=== PATIENT | female | born 1935 | race Caucasian/White ===

== ENCOUNTER 2018-08-08 09:04 | Inpatient (IN) | payer MEDICARE ==
[~2018-08-08] VITALS: Ht 154.9 cm; Wt 52.2 kg
[2018-08-08] VITALS (16 sets, daily range): BP systolic 89–136; BP diastolic 44–61
--- NOTE | 2018-08-08 09:04 | NUR ---
PT ARRIVED VIA EMS ET STATES SHE WANTS TO GO TO THE BATHROOM BEFORE ANYTHING. ON WAY BACK FROM THE BATHROOM SHE STARTED HAVING CHEST PAIN AND SOA.
--- NOTE | 2018-08-08 09:10 | NUR ---
PT STATES CHEST PAIN AND SOA IS BETTER.
[2018-08-08 09:41] LABS: BASOPHILS % (AUTO) 0 % (0-10); EOSINOPHILS # (AUTO) 0.2 10^3/uL (0.0-0.3); EOSINOPHILS % (AUTO) 2 % (0-10); HEMATOCRIT 36 % (35-52); HEMOGLOBIN 11.9 G/DL (11.5-16.0); LYMPHOCYTES # (AUTO) 1.2 X 10^3 (1.0-4.0); LYMPHOCYTES % (AUTO) 14 % (12-44); MEAN CORPUSCULAR HEMOGLOBIN 30 PG (25-34); MEAN CORPUSCULAR HGB CONC 33 G/DL (32-36); MEAN CORPUSCULAR VOLUME 93 FL (80-99); MONOCYTES # (AUTO) 0.7 X 10^3 (0.0-1.0); MONOCYTES % (AUTO) 8 % (0-12); NEUTROPHILS # (AUTO) 6.8 X 10^3 (1.8-7.8); NEUTROPHILS % (AUTO) 76 % (42-75); PLATELET COUNT 133 10^3/uL (130-400); WHITE BLOOD COUNT 8.9 10^3/uL (4.3-11.0)
--- NOTE | 2018-08-08 09:53 | Diagnostic Imaging Report ---
INDICATION: Chest pain. FINDINGS: Upright portable chest shows cardiomegaly with no failure. The lungs are clear. There is no effusion or pneumothorax. A pacemaker is present. IMPRESSION: There is generalized cardiomegaly with no failure. A pacemaker is present. Dictated by: Dictated on workstation # [id number]
[2018-08-08 09:56] LABS: BILIRUBIN,TOTAL 0.5 MG/DL (0.1-1.0); CALCIUM 10.4 MG/DL (8.5-10.1); CREATININE SERUM 1.19 MG/DL (0.60-1.30); MAGNESIUM 2.2 MG/DL (1.8-2.4); TOTAL PROTEIN 7.7 GM/DL (6.4-8.2)
[2018-08-08 09:58] LABS: PROTHROMBIN TIME PATIENT 13.5 SEC (12.2-14.7)
[2018-08-08 10:03] LABS: MYOGLOBIN SERUM 97.4 NG/ML (10.0-92.0)
[2018-08-08 10:16] LABS: FREE T4 (FREE THYROXINE) 1.3 NG/DL (0.70-1.48)
--- NOTE | 2018-08-08 10:19 | NUR ---
WARM BLANKET GIVEN. DENIES NEEDS AT THIS TIME. NOTIFIED WE WERE WAITING ON RESULTS.
[2018-08-08] MEDS ORDERED: DILTIAZEM 25 MG/5 ML INJ (CARDIZEM) VIAL IVP ONE (11:30)
[2018-08-08] MEDS ORDERED: DILTIAZEM INJECTION 125 MG in NS (IVPB) 100 ML IV SCH (11:30)
--- NOTE | 2018-08-08 12:55 | NUR ---
PT SITTING UP IN BED WITH SLIGHT PAIN IN BACK.
--- NOTE | 2018-08-08 13:15 | ED Chest Pain ---
General Chief Complaint: Chest Pain Stated Complaint: CHEST PAIN Nursing Triage Note: ARRIVED VIA EMS FROM [place] WITH CHEST PAIN. STATES IT STARTED AT 0515 AFTER WAKING UP FROM A BAD DREAM. PT TOOK X2 NITRO AND ASA 325MG PO BEOFRE CALLING EMS. EMS REPORTS PT DID HAVE A RUN OF AFIB WITH RVR. Nursing Sepsis Screen: No Definite Risk Source: patient Exam Limitations: no limitations History of Present Illness Date Seen by Provider: Aug 08, 2018 Time Seen by Provider: 08:47 Initial Comments Patient presents to the emergency room with complaint of chest pain that started around 05:15. She took nitroglycerin which helped briefly. Pain returned. She then decided to activate EMS. EMS administered nitroglycerin 2 and aspirin 324 mg. Chest pain again improved. Patient has a history of cardiovascular disease. She had a pacemaker replacement with defibrillator placement in March of last year. She then had a cardiac catheterization in April. She states small vessel disease was noted but her coronary artery disease is not amenable to intervention. She sees Dr. Winter at [facility] for cardiology care. Her primary care providers Dr. Carlson. Allergies and Home Medications Allergies Coded Allergies: prednisone (Verified Allergy, Unknown, RACING HEART, 08/08/18) amoxicillin (Verified Adverse Reaction, Unknown, NAUSEA, 08/08/18) Uncoded Allergies: CONTRST DYE (Adverse Reaction, Unknown, KIDNEYS FAILED, 08/08/18) Home Medications Acetaminophen 500 Mg Tablet, 500 MG PO TID PRN for PAIN-MILD, (Reported) Aspirin 81 Mg Tab.chew, 81 MG PO DAILY, (Reported) Atorvastatin Calcium 40 Mg Tablet, 40 MG PO HS, (Reported) Calcium Carbonate 600 Mg Tablet, 1,200 MG PO DAILY, (Reported) Clopidogrel Bisulfate 75 Mg Tablet, 75 MG PO DAILY, (Reported) TAKES AT 0630 Ferrous Sulfate 325 Mg Tablet, 325 MG PO BID WITH MEALS, (Reported) Furosemide 40 Mg Tablet, 40 MG PO BIDAC, (Reported) TAKES AT 0630 AND 1400 Krill/Barrington-3/Dha/Epa/Lipids Unknown Strength Capsule, Unknown Dose PO HS, ( Reported) Levothyroxine Sodium 125 Mcg Tablet, 125 MCG PO DAILY, (Reported) Losartan Potassium 25 Mg Tablet, 25 MG PO DAILY, (Reported) Metoprolol Succinate 25 Mg Tab.er.24h, 25 MG PO DAILY, (Reported) Midodrine HCl 2.5 Mg Tablet, 3 TAB PO UD, (Reported) 3 PER DAY AT MEAL TIME. SKIP DOSE IF SBP IS OVER 100 Multivitamin with Minerals 1 Each Tablet, 1 EACH PO DAILY, (Reported) TAKES W/ EVENING MEAL Nitroglycerin 0.4 Mg Tab.subl, 0.4 MG SL UD PRN for CHEST PAIN, (Reported) GIVE 1 TABLET SL EVERY 5 MIN. PRN CHEST PAIN - MAX IS 3 TABLETS IN 15 MIN. PERIOD. Omeprazole 20 Mg Capsule.dr, 20 MG PO HS, (Reported) Polyethylene Glycol 3350 17 Gm Powd.pack, 17 GM PO DAILY PRN for CONSTIPATION- 1ST LINE, (Reported) Spironolactone 25 Mg Tablet, 25 MG PO DAILY, (Reported) Timolol Maleate 5 Ml Drops, 1 DROP OU HS, (Reported) Ursodiol 300 Mg Capsule, 300 MG PO BID WITH MEALS, (Reported) Vit C/Vit E/Lutein/Min/Barrington-3 1 Each Capsule, 1 EACH PO DAILY, (Reported) Patient Home Medication List Home Medication List Reviewed: Yes Review of Systems Review of Systems Constitutional: no symptoms reported EENTM: No Symptoms Reported Respiratory: See HPI Cardiovascular: See HPI Gastrointestinal: No Symptoms Reported Genitourinary: No Symptoms Reported Musculoskeletal: no symptoms reported Skin: no symptoms reported Psychiatric/Neurological: No Symptoms Reported Endocrine: No Symptoms Reported Hematologic/Lymphatic: No Symptoms Reported Past Tybrbkt-Juhzig-Izazvm Hx Patient Social History Alcohol Use: Denies Use Recreational Drug Use: No Smoking Status: Never a Smoker Recent Foreign Travel: No Contact w/Someone Who Travel: No Recent Infectious Disease Expo: No Recent Hopitalizations: No Past Medical History Surgeries: Yes Cardiac (Cardiac angiography), Ear Surgery, Hysterectomy, Orthopedic Respiratory: Yes Pneumonia, COPD Cardiac: Yes Atrial Fibrillation, Coronary Artery Disease, Heart Attack, Hypertension Neurological: No : No Genitourinary: No Gastrointestinal: Yes Cirrhosis (Of unknown etiology), Gall Bladder Disease Musculoskeletal: Yes Fractures HEENT: No Cancer: No Psychosocial: No Physical Exam Vital Signs Vital Signs - First Documented 08/08/18 09:04 Temp 98.0 Pulse 134 Resp 16 B/P (MAP) 153/94 (113) Pulse Ox 100 O2 Delivery Room Air Capillary Refill : Less Than 3 Seconds Height, Weight, BMI Height: 5'1.00" Weight: 112lbs. oz. 50.324640fl; BMI Method:Stated General Appearance: No Apparent Distress, WD/WN, Thin HEENT: PERRL/EOMI, Normal ENT Inspection Neck: Normal Inspection Respiratory: Lungs Clear, Normal Breath Sounds, No Accessory Muscle Use, No Respiratory Distress Cardiovascular: No Edema, No Murmur, Normal Peripheral Pulses, Irregularly Irregular, Tachycardia Gastrointestinal: Non Tender, Soft Extremity: Normal Capillary Refill, Normal Inspection, No Pedal Edema Neurologic/Psychiatric: Alert, Oriented x3, No Motor/Sensory Deficits, Normal Mood/Affect, assistant cross country coach II-XII Norm as Tested Skin: Normal Color, Warm/Dry Progress/Results/Core Measures Results/Orders Lab Results Laboratory Tests Test 08/08/18 09:10 Range/Units White Blood Count 8.9 4.3-11.0 10^3/uL Red Blood Count 3.92 L 4.35-5.85 10^6/uL Hemoglobin 11.9 11.5-16.0 G/DL Hematocrit 36 35-52 % Mean Corpuscular Volume 93 80-99 FL Mean Corpuscular Hemoglobin 30 25-34 PG Mean Corpuscular Hemoglobin Concent 33 32-36 G/DL Red Cell Distribution Width 15.0 H 10.0-14.5 % Platelet Count 133 130-400 10^3/uL Mean Platelet Volume 11.0 H 7.4-10.4 FL Neutrophils (%) (Auto) 76 H 42-75 % Lymphocytes (%) (Auto) 14 12-44 % Monocytes (%) (Auto) 8 0-12 % Eosinophils (%) (Auto) 2 0-10 % Basophils (%) (Auto) 0 0-10 % Neutrophils # (Auto) 6.8 1.8-7.8 X 10^3 Lymphocytes # (Auto) 1.2 1.0-4.0 X 10^3 Monocytes # (Auto) 0.7 0.0-1.0 X 10^3 Eosinophils # (Auto) 0.2 0.0-0.3 10^3/uL Basophils # (Auto) 0.0 0.0-0.1 10^3/uL Prothrombin Time 13.5 12.2-14.7 SEC INR Comment 1.0 0.8-1.4 Activated Partial Thromboplast Time 32 24-35 SEC Sodium Level 139 135-145 MMOL/L Potassium Level 4.0 3.6-5.0 MMOL/L Chloride Level 99 98-107 MMOL/L Carbon Dioxide Level 26 21-32 MMOL/L Anion Gap 14 5-14 MMOL/L Blood Urea Nitrogen 24 H 7-18 MG/DL Creatinine 1.19 0.60-1.30 MG/DL Estimat Glomerular Filtration Rate 43 BUN/Creatinine Ratio 20 Glucose Level 126 H 70-105 MG/DL Calcium Level 10.4 H 8.5-10.1 MG/DL Corrected Calcium 10.4 H 8.5-10.1 MG/DL Magnesium Level 2.2 1.8-2.4 MG/DL Total Bilirubin 0.5 0.1-1.0 MG/DL Aspartate Amino Transf (AST/SGOT) 37 H 5-34 U/L Alanine Aminotransferase (ALT/SGPT) 15 0-55 U/L Alkaline Phosphatase 110 40-136 U/L Myoglobin 97.4 H 10.0-92.0 NG/ML Troponin I 0.037 <0.028 NG/ML B-Type Natriuretic Peptide 520.2 H <100.0 PG/ML Total Protein 7.7 6.4-8.2 GM/DL Albumin 4.0 3.2-4.5 GM/DL Thyroid Stimulating Hormone (TSH) 1.71 0.35-4.94 UIU/ML Free Thyroxine 1.30 0.70-1.48 NG/DL My Orders Orders - MEGHAN COSTA MD Cbc With Automated Diff (08/08/18:30) Magnesium (08/08/18 09:30) Chest 1 View, Ap/Pa Only (08/08/18:30) Ekg Tracing (08/08/18:30) Cardiac Profile 1 (08/08/18:30) Comprehensive Metabolic Panel (08/08/18:30) Myoglobin Serum (08/08/18:30) Protime With Inr (08/08/18:) Partial Thromboplastin Time (08/08/18:) O2 (08/08/18:30) Monitor-Rhythm Ecg Trace Only (08/08/18:30) Lipid Panel (08/09/18 06:00) Saline Lock/Iv-Start (08/08/18:) BNP (08/08/18:30) Thyroid Stimulating Hormone (08/08/18 09:30) Free T4 (Free Thyroxine) (08/08/18 09:30) Ns (Ivpb) (Sodium C... W/Diltiazem Injec (08/08/18 11:30) Diltiazem Injection (Cardizem Injection) (08/08/18 11:30) Medications Given in ED Current Medications Medications Dose Ordered Sig/Hattie Route Start Time Stop Time Status Last Admin Dose Admin Diltiazem HCl 10 mg ONCE ONCE IVP 08/08/18 11:30 08/08/18 11:31 DC 08/08/18 11:52 10 MG Vital Signs/I&O 08/08/18 09:04 Temp 98.0 Pulse 134 Resp 16 B/P (MAP) 153/94 (113) Pulse Ox 100 O2 Delivery Room Air Blood Pressure Mean: 113 Progress Progress Note : Progress Note Patient's chest pain had resolved by the time of arrival after nitroglycerin 2 by EMS. However, when she walked to the bathroom, she had shortness of breath and chest pain. This resolved with rest in her bed. She was given aspirin by EMS. She had already taken her Plavix and metoprolol at home. Patient is not on anticoagulation because she has had severe hematomas from Lovenox and warfarin in the past. Hematomas were so severe they required surgical intervention and tissue debridement. I discussed the case with Dr. Jha. He recommended Cardizem drip which was initiated in the emergency room. He also recommended Lovenox but patient wishes to discuss this further with Dr. Jha before initiating due to her history of severe hematomas. Patient also said she had an atrial clip placed which is supposed to reduce her risk of stroke from atrial fibrillation. Cardizem drip was initiated and improve her heart rate. Patient was admitted with the chest pain protocol to the ICU with a Cardizem drip infusing. Initial ECG Impression Date: Aug 08, 2018 Initial ECG Impression Time: 09:07 Initial ECG Rate: 100 Initial ECG Rhythm: A Fib/Flutter Comment Paced rhythm with no discernible ST elevation or depression. Based on rhythm on the monitor around the time of EKG, this is likely in atrial fibrillation. Diagnostic Imaging Diagonstic Imaging: Xray Plain Films/CT/US/NM/MRI: chest Comments NAME: CARLI JESUS MED REC#: [id number] PT STATUS: REG ER : 1935 PHYSICIAN: MEGHAN COSTA MD ADMIT DATE: 08/08/18/ER Signed Date of Exam: 08/08/18 CHEST 1 VIEW, AP/PA ONLY INDICATION: Chest pain. FINDINGS: Upright portable chest shows cardiomegaly with no failure. The lungs are clear. There is no effusion or pneumothorax. A pacemaker is present. IMPRESSION: There is generalized cardiomegaly with no failure. A pacemaker is present. Dictated by: Dictated on workstation # [id number] Dict: 08/08/1844 Trans: 08/08/1858 Interpreted by: SEBASTIAN ORTEGA MD Electronically signed by: SEBASTIAN ORTEGA MD 08/08/1858 Departure Communication (Admissions) Time/Spoke to Admitting Phy: 11:38 Lucina Time/Spoke to Consulting Phy: 11:30 Abhijeet Impression Primary Impression: Chest pain Qualified Codes: R07.9 - Chest pain, unspecified Additional Impressions: Atrial fibrillation with RVR Coronary artery disease Qualified Codes: I25.10 - Atherosclerotic heart disease of tribe coronary artery without angina pectoris Disposition: ADMITTED INPATIENT Condition: Improved Admissions Decision to Admit Reason: Admit from ER (General) Decision to Admit/Date: Aug 08, 2018 Time/Decision to Admit Time: 09:00 Departure-Patient Inst. Referrals: ALBERT CARLSON MD (PCP/Family) Primary Care Physician MEGHAN COSTA MD Aug 08, 2018 13:15
--- NOTE | 2018-08-08 13:30 | NUR ---
CARLI JESUS admitted to room CU8-1, with an admitting diagnosis of CP, AFIB RVR, on 08/08/18 from ER via CART, accompanied by STAFF.CARLI JESUS introduced to surroundings, call light, bed controls, phone, TV, temperature control, lights, meal times, smoking policy, visitor policy, side rail policy, bathrooms and showers. Patient Rights given to patient in the handbook. CARLI JESUS verbalizes understanding that [facility] is not responsible for the loss or damage to any personal effects or valuables that are kept in the patients posession during their hospitalization. The following Patient Care Plans were discussed with the PT: Discharge Planning, ANXIETY,ACTIVITY INTOLERANCE, and KNOWLEDGE DEFICIT. CARLI JESUS verbalizes understanding of Interdisciplinary Patient Education. Patient and family were informed about the Rapid Response Team and its purpose.
[2018-08-08] MEDS ORDERED: DILTIAZEM 125 MG/NS 100 ML IV SCH ×2 (14:15)
[2018-08-08] MEDS ORDERED: morphine INJ 4 MG/ML 1 ML (VIAL/SYRINGE) IVP PRN (14:30)
[2018-08-08] MEDS ORDERED: NITROGLYCERIN 0.4 MG SL TABS BTL 25'S SL PRN ×2 (14:30→16:15)
--- NOTE | 2018-08-08 15:47 | Consultation-Cardiology ---
HPI-Cardiology Cardiology Consultation: Date of Consultation 08/08/18 Time Seen by a Provider: 15:40 Date of Admission Attending Physician Hazel Verdugo MD Admitting Physician Sylvain Dominguez MD Consulting Physician DONNA GORE MD, MA, FACP, FACC, FSCAI, CCDS Physician requesting consult: Dr England HPI: Chief Complaint: CC: Chest discomfort, palpitations 83 yo woman who awoke with a feeling of a rapid heart beat; home bp equipment indicated a heart rate of 120 bpm. When she got up and walked she would experience upper midsternal pressure, mod in intensity, radiating to both shoulders, associated with some shortness of breath. This would last several minutes and would improve with rest. She came to the ER where she had another episode while walking to the bathroom. Subsequently, for her A Fib with RVR, she was placed on iv dilt. Has since not had chest discomfort or palp. Denies syncope. Has chronic exertional shortness of breath. Does not report leg swelling. Notes gen malaise Review of Systems-Cardiology Review of Systems Constitutional: As described under HPI Eyes: No vision change Ears/Nose/Throat: chronic hearing loss; No ear discharge, No nasal drainage, No recent hearing loss Respiratory: As described under HPI Cardiovascular: As described under HPI Gastrointestinal: No constipation, No diarrhea, No nausea, No vomiting Genitourinary: No dysuria, No hematuria, No urine frequency changes Musculoskeletal: No back pain, No joint pain Skin: No rash, No ulcerations Psychiatric/Neurological: No seizure, No focal weakness Hematologic: No bleeding abnormalities CCJ-Nyaknq-Zfyyio Hx Patient Social History Alcohol Use: Denies Use Recreational Drug Use: No Smoking Status: Never a Smoker Recent Foreign Travel: No Recent Infectious Disease Expo: No Physical Abuse Screen: No Sexual Abuse: No Immunizations Up To Date Date of Pneumonia Vaccine: Feb 20, 2018 Date of Influenza Vaccine: Feb 20, 2018 Past Medical History PMH As described under Assessment. Family Medical History Family History: Cardiovascular disease 19 MOTHER Hypercholesterolemia DAUGHTER Myocardial infarction 19 FATHER Allergies and Home Medications Allergies Coded Allergies: prednisone (Verified Allergy, Unknown, RACING HEART, 08/08/18) amoxicillin (Verified Adverse Reaction, Unknown, NAUSEA, 08/08/18) Uncoded Allergies: CONTRST DYE (Adverse Reaction, Unknown, KIDNEYS FAILED, 08/08/18) Home Medications Acetaminophen 500 Mg Tablet, 500 MG PO TID PRN for PAIN-MILD, (Reported) Aspirin 81 Mg Tab.chew, 81 MG PO DAILY, (Reported) Atorvastatin Calcium 40 Mg Tablet, 40 MG PO HS, (Reported) Calcium Carbonate 600 Mg Tablet, 1,200 MG PO DAILY, (Reported) Clopidogrel Bisulfate 75 Mg Tablet, 75 MG PO DAILY, (Reported) TAKES AT 0630 Ferrous Sulfate 325 Mg Tablet, 325 MG PO BID WITH MEALS, (Reported) Furosemide 40 Mg Tablet, 40 MG PO BIDAC, (Reported) TAKES AT 0630 AND 1400 Krill/Breese-3/Dha/Epa/Lipids Unknown Strength Capsule, Unknown Dose PO HS, ( Reported) Levothyroxine Sodium 125 Mcg Tablet, 125 MCG PO DAILY, (Reported) Losartan Potassium 25 Mg Tablet, 25 MG PO DAILY, (Reported) Metoprolol Succinate 25 Mg Tab.er.24h, 25 MG PO DAILY, (Reported) Midodrine HCl 2.5 Mg Tablet, 3 TAB PO UD, (Reported) 3 PER DAY AT MEAL TIME. SKIP DOSE IF SBP IS OVER 100 Multivitamin with Minerals 1 Each Tablet, 1 EACH PO DAILY, (Reported) TAKES W/ EVENING MEAL Nitroglycerin 0.4 Mg Tab.subl, 0.4 MG SL UD PRN for CHEST PAIN, (Reported) GIVE 1 TABLET SL EVERY 5 MIN. PRN CHEST PAIN - MAX IS 3 TABLETS IN 15 MIN. PERIOD. Omeprazole 20 Mg Capsule.dr, 20 MG PO HS, (Reported) Polyethylene Glycol 3350 17 Gm Powd.pack, 17 GM PO DAILY PRN for CONSTIPATION- 1ST LINE, (Reported) Spironolactone 25 Mg Tablet, 25 MG PO DAILY, (Reported) Timolol Maleate 5 Ml Drops, 1 DROP OU HS, (Reported) Ursodiol 300 Mg Capsule, 300 MG PO BID WITH MEALS, (Reported) Vit C/Vit E/Lutein/Min/Breese-3 1 Each Capsule, 1 EACH PO DAILY, (Reported) Patient Home Medication List Home Medication List Reviewed: Yes Physical Exam-Cardiology Physical Exam Vital Signs/I&O 08/08/18 08/08/18 08/08/18 08/08/18 09:04 13:30 13:30 13:33 Temp 98.0 99.1 97.4 Pulse 134 93 83 Resp 16 14 18 B/P (MAP) 153/94 (113) 136/61 (86) 107/68 (81) Pulse Ox 100 99 99 98 O2 Delivery Room Air Room Air Room Air Room Air 08/08/18 08/08/18 14:45 15:40 Temp 98.4 Pulse 81 Capillary Refill : Less Than 3 Seconds Constitutional: AAO x 3, well-developed, other (Thin-appearing) HEENT: PERRL, EOMI, hard of hearing Neck: No carotid bruit; carotid pulses are 2 + bilaterally, with good upstrokes Respiratory: No accessory muscle use; other (fair to good bilat air entry) Cardiovascular: irregularly irregular, S1 and S2, systolic murmur (2/6 RK at card base) Gastrointestinal: No tender; soft; No guarding, No rebound; audible bowel sounds Extremities: No clubbing, No cyanosis, No significant edema Neurologic/Psychiatric: oriented x 3, grossly intact, power is 5/5 both on sides Skin: No rash on exposed areas, No ulcerations on exposed areas Data Review Labs Laboratory Tests 08/08/18 09:10: White Blood Count 8.9, Red Blood Count 3.92L, Hemoglobin 11.9, Hematocrit 36, Mean Corpuscular Volume 93, Mean Corpuscular Hemoglobin 30, Mean Corpuscular Hemoglobin Concent 33, Red Cell Distribution Width 15.0H, Platelet Count 133, Mean Platelet Volume 11.0H, Neutrophils (%) (Auto) 76H, Lymphocytes (%) (Auto) 14, Monocytes (%) (Auto) 8, Eosinophils (%) (Auto) 2, Basophils (%) (Auto) 0, Neutrophils # (Auto) 6.8, Lymphocytes # (Auto) 1.2, Monocytes # (Auto) 0.7, Eosinophils # (Auto) 0.2, Basophils # (Auto) 0.0, Prothrombin Time 13.5, INR Comment 1.0, Activated Partial Thromboplast Time 32, Sodium Level 139, Potassium Level 4.0, Chloride Level 99, Carbon Dioxide Level 26, Anion Gap 14, Blood Urea Nitrogen 24H, Creatinine 1.19, Estimat Glomerular Filtration Rate 43 , BUN/Creatinine Ratio 20, Glucose Level 126H, Calcium Level 10.4H, Corrected Calcium 10.4H, Magnesium Level 2.2, Total Bilirubin 0.5, Aspartate Amino Transf (AST/SGOT) 37H, Alanine Aminotransferase (ALT/SGPT) 15, Alkaline Phosphatase 110 , Myoglobin 97.4H, Troponin I 0.037, B-Type Natriuretic Peptide 520.2H, Total Protein 7.7, Albumin 4.0, Thyroid Stimulating Hormone (TSH) 1.71, Free Thyroxine 1.30 08/08/18 15:07: Troponin I 1.108*H A/P-Cardiology Assessment/Admission Diagnosis 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 In November, at [facility]: 60% LMCA treated with Alp Xience 2.5 x 15 mm stent extending into prox LCX , 50% prox LAD, patent mild LAD stent, long and diffuse 90-95% stenosis of distal LAD after the stent, 50% ostial LCX, chronic mid-vessel occ of the RCA. Last cath on 04/22/18 at [facility]: Cor status unchanged except a newly occluded LAD that was not intervened on (treated conservatively) Chronic systolic CHF due to severe ischemic CM with LVEF reported to be 25% on echo of Feb, 2018 at [facility] [employer] in Mar, [address] Scott at [facility]. Previously had a single chamber pacemaker that was first placed in 2005 and revised in 2012 at [facility] S/p Atriclip at [facility] in 2017. Taken off OAC after that H/o hypothyroidism (etiology undefined) H/o hypertension H/o hyperlipidemia H/o GERD H/o primary biliary cirrhosis Discussion and Recomendations * This appears to be a Type-2 (rather than a classic, thrombo-embolic) MA. In addition, she states that she had her most recent cath at [facility] in Mar, 2018 and was told that she is not a candidate for further cor interventions. Thus, med therapy appears appropriate * The initiating cause of this event is likely to be the rapid vent response that she is experiencing from her A Fib. A review of her [facility] records indicates that beta-blockers have not been effective in rate control. Accordingly, we have added CCB, while continuing her home dose of beta-elaina. Currently, she is on iv dilt. Tomorrow, we will attempt to convert her to long-acting oral dilt * We recommend continuing her CHF/CM regimen of metoprolol succinate, losartan, furosemide, and spironolactone * We recommend continuing her dual antiplatelet therapy (aspirin and clopidogrel ) * She does not need oral anticoagulation due to the reason noted above * I reviewed her records from [facility] in detail. We have received only discharge summaries from [facility], not the actual cath reports. What could be gleaned from discharge summaries is summarized above * I interviewed and examined her and answered her CV-related questions in detail Clinical Quality Measures AMI/AHF: ASA po Prior to arrival: Yes DVT/VTE Risk/Contraindication: Risk Factor Score Per Nursin RFS Level Per Nursing on Admit: 2=Moderate DONNA GORE MD FACP [facility] CCDS Aug 08, 2018 15:47
[2018-08-08] MEDS ORDERED: FUROSEMIDE 40 MG (LASIX) TAB PO ONE (16:15)
[2018-08-08] MEDS ORDERED: FUROSEMIDE 40 MG (LASIX) TAB ONE (16:21)
[2018-08-08] MEDS: MULTIVIT W/MINERALS TAB (THERAGRAN M) PO SCH (17:50)
[2018-08-08] MEDS: ATORVASTATIN 40 MG (LIPITOR) TABLET PO SCH (21:15)
[2018-08-08] MEDS: PANTOPRAZOLE 20 MG TABLET (PROTONIX) PO SCH (21:16)
[2018-08-08] MEDS: TIMOLOL MALEATE 0.5% 5 ML (TIMOPTIC) BTL OU SCH (21:17)
[2018-08-09] VITALS (14 sets, daily range): BP systolic 87–128; BP diastolic 45–70
--- NOTE | 2018-08-09 00:45 | NUR ---
Patient's blood pressure noted to be low, cardizem drip turned off at this time. HRR, 80 bpm. Patient is asymptomatic with low blood pressure. Will continue to monitor.
[2018-08-09 04:29] LABS: BASOPHILS % (AUTO) 1 % (0-10); EOSINOPHILS # (AUTO) 0.4 10^3/uL (0.0-0.3); EOSINOPHILS % (AUTO) 4 % (0-10); HEMATOCRIT 34 % (35-52); LYMPHOCYTES # (AUTO) 1.6 X 10^3 (1.0-4.0); LYMPHOCYTES % (AUTO) 20 % (12-44); MEAN CORPUSCULAR HEMOGLOBIN 30 PG (25-34); MEAN CORPUSCULAR HGB CONC 32 G/DL (32-36); MEAN CORPUSCULAR VOLUME 93 FL (80-99); MEAN PLATELET VOLUME 10.7 FL (7.4-10.4); MONOCYTES # (AUTO) 0.9 X 10^3 (0.0-1.0); MONOCYTES % (AUTO) 12 % (0-12); NEUTROPHILS % (AUTO) 63 % (42-75); PLATELET COUNT 125 10^3/uL (130-400); WHITE BLOOD COUNT 7.9 10^3/uL (4.3-11.0)
[2018-08-09 04:53] LABS: CALCIUM 9.4 MG/DL (8.5-10.1); CREATININE SERUM 1.17 MG/DL (0.60-1.30); MAGNESIUM 2.1 MG/DL (1.8-2.4); PHOSPHORUS 3.7 MG/DL (2.3-4.7); POTASSIUM 3.8 MMOL/L (3.6-5.0)
--- NOTE | 2018-08-09 06:35 | Pulmonary Consultation ---
History of Present Illness History of Present Illness Date of Consultation 08/09/18 06:26 Time Seen by Provider: 06:27 Date of Admission History of Present Illness 83yo patient presented to ED secondary to progressive SOB, palpitations, midsternal moderate CP worse with exertion with radiation to both shoulders. Symptoms improved with rest. In the ED she was found to be in Afib RVR and was placed on Cardizem gtt. I am consulted for ICU/pulmonary management. Allergies and Home Medications Allergies Coded Allergies: prednisone (Verified Allergy, Unknown, RACING HEART, 08/08/18) amoxicillin (Verified Adverse Reaction, Unknown, NAUSEA, 08/08/18) Uncoded Allergies: CONTRST DYE (Adverse Reaction, Unknown, KIDNEYS FAILED, 08/08/18) Home Medications Acetaminophen 500 Mg Tablet, 500 MG PO TID PRN for PAIN-MILD, (Reported) Aspirin 81 Mg Tab.chew, 81 MG PO DAILY, (Reported) Atorvastatin Calcium 40 Mg Tablet, 40 MG PO HS, (Reported) Calcium Carbonate 600 Mg Tablet, 1,200 MG PO DAILY, (Reported) Clopidogrel Bisulfate 75 Mg Tablet, 75 MG PO DAILY, (Reported) TAKES AT 0630 Ferrous Sulfate 325 Mg Tablet, 325 MG PO BID WITH MEALS, (Reported) Furosemide 40 Mg Tablet, 40 MG PO BIDAC, (Reported) TAKES AT 0630 AND 1400 Krill/Allston-3/Dha/Epa/Lipids Unknown Strength Capsule, Unknown Dose PO HS, ( Reported) Levothyroxine Sodium 125 Mcg Tablet, 125 MCG PO DAILY, (Reported) Losartan Potassium 25 Mg Tablet, 25 MG PO DAILY, (Reported) Metoprolol Succinate 25 Mg Tab.er.24h, 25 MG PO DAILY, (Reported) Midodrine HCl 2.5 Mg Tablet, 3 TAB PO UD, (Reported) 3 PER DAY AT MEAL TIME. SKIP DOSE IF SBP IS OVER 100 Multivitamin with Minerals 1 Each Tablet, 1 EACH PO DAILY, (Reported) TAKES W/ EVENING MEAL Nitroglycerin 0.4 Mg Tab.subl, 0.4 MG SL UD PRN for CHEST PAIN, (Reported) GIVE 1 TABLET SL EVERY 5 MIN. PRN CHEST PAIN - MAX IS 3 TABLETS IN 15 MIN. PERIOD. Omeprazole 20 Mg Capsule.dr, 20 MG PO HS, (Reported) Polyethylene Glycol 3350 17 Gm Powd.pack, 17 GM PO DAILY PRN for CONSTIPATION- 1ST LINE, (Reported) Spironolactone 25 Mg Tablet, 25 MG PO DAILY, (Reported) Timolol Maleate 5 Ml Drops, 1 DROP OU HS, (Reported) Ursodiol 300 Mg Capsule, 300 MG PO BID WITH MEALS, (Reported) Vit C/Vit E/Lutein/Min/Allston-3 1 Each Capsule, 1 EACH PO DAILY, (Reported) Past Rqptdiz-Bzwxvd-Ophfky Hx Patient Social History Alcohol Use: Denies Use Recreational Drug Use: No Smoking Status: Never a Smoker Recent Foreign Travel: No Contact w/Someone Who Travel: No Recent Infectious Disease Expo: No Recent Hopitalizations: No Immunizations Up To Date Date of Pneumonia Vaccine: Feb 20, 2018 Date of Influenza Vaccine: Feb 20, 2018 Seasonal Allergies Seasonal Allergies: No Past Medical History Surgeries: Yes Cardiac (Cardiac angiography), Ear Surgery, Hysterectomy, Orthopedic Respiratory: Yes Pneumonia, COPD Currently Using CPAP: No Currently Using BIPAP: No Cardiac: Yes (PACEMAKER/DEFIB) Atrial Fibrillation, Coronary Artery Disease, Heart Attack, Hypertension Neurological: No : No Genitourinary: No Gastrointestinal: Yes Cirrhosis (Of unknown etiology), Gall Bladder Disease Musculoskeletal: Yes Arthritis, Fractures Endocrine: No HEENT: Yes (DUKES NODULAR CORNEAL DEGENERATION, YAG) Glaucoma Cancer: No Psychosocial: No Integumentary: No Blood Disorders: No Family Medical History Cardiovascular disease 19 MOTHER Hypercholesterolemia DAUGHTER Myocardial infarction 19 FATHER Sepsis Event Evaluation Height, Weight, BMI Height: 5'1.00" Weight: 115lbs. 7.0oz. 52.469669tq; 21.8 BMI Method:Stated Exam Exam Vital Signs Date Time Temp Pulse Resp B/P (MAP) Pulse Ox O2 Delivery O2 Flow Rate FiO2 08/09/18 06:00 80 98/52 (67) 95 Room Air 08/09/18 05:00 80 15 92/45 (61) 97 Room Air 08/09/18 04:27 Room Air 08/09/18 04:27 97.2 80 11 107/53 (71) 96 Room Air 08/09/18 04:00 80 18 93/47 (62) 98 Room Air 08/09/18 03:00 80 18 116/54 (74) 92 Room Air 08/09/18 02:00 80 17 110/52 (71) 93 Room Air 08/09/18 01:00 80 08/09/18 01:00 80 28 111/57 (75) 95 Room Air 08/09/18 00:00 80 11 107/53 (71) 96 Room Air 08/09/18 00:00 Room Air 08/09/18 00:00 97.4 08/08/18 23:00 80 16 95/57 (70) 96 Room Air 08/08/18 22:00 80 21 89/54 (66) 98 Room Air 08/08/18 21:00 80 10 94/57 (69) 96 Room Air 08/08/18 20:00 98.5 08/08/18 20:00 Room Air 08/08/18 20:00 80 21 97/46 (63) 95 Room Air 08/08/18 19:00 80 11 103/49 (67) 94 Room Air 08/08/18 19:00 80 08/08/18 18:00 80 21 96/51 (66) 99 Room Air 08/08/18 17:00 80 19 111/56 (74) 100 Room Air 08/08/18 16:00 80 18 100/44 (62) 98 Room Air 08/08/18 16:00 Room Air 08/08/18 15:40 98.4 08/08/18 15:30 96 15 106/50 (68) 99 Room Air 08/08/18 15:00 80 20 103/48 (66) 100 Room Air 08/08/18 14:45 81 08/08/18 14:45 82 20 116/53 (74) 100 Room Air 08/08/18 14:30 82 22 103/49 (67) 97 Room Air 08/08/18 14:15 82 16 101/52 (68) 97 Room Air 08/08/18 14:00 90 20 127/52 (77) 98 Room Air 08/08/18 13:45 99.1 93 14 136/61 (86) 99 Room Air 08/08/18 13:33 97.4 83 18 107/68 (81) 98 Room Air 08/08/18 13:30 99 Room Air 08/08/18 09:04 98.0 134 16 153/94 (113) 100 Room Air I & O 08/09/18 07:00 Intake Total 605 ml Output Total 650 ml Balance -45 ml Height & Weight Height: 5'1.00" Weight: 115lbs. 7.0oz. 52.524750on; 21.8 BMI Method:Stated General Appearance: No Apparent Distress, WD/WN, Thin HEENT: PERRL/EOMI, Normal ENT Inspection Neck: Normal Inspection Respiratory: Lungs Clear, Normal Breath Sounds, No Accessory Muscle Use, No Respiratory Distress Cardiovascular: No Edema, No Murmur, Normal Peripheral Pulses, Irregularly Irregular, Tachycardia Capillary Refill: Less Than 3 Seconds Extremity: Normal Capillary Refill, Normal Inspection, No Pedal Edema Neurologic/Psychiatric: Alert, Oriented x3, No Motor/Sensory Deficits, Normal Mood/Affect, money order clerk II-XII Norm as Tested Skin: Normal Color, Warm/Dry Results Lab Laboratory Tests 08/08/18 09:10 08/09/18 04:05 Assessment/Plan Assessment/Plan CP with elevated troponin -Cardiology is consulted -ASA, and plavix NSTEMI Afib RVR -Pt is off cardizem secondary to hypotension Hypotension- resolved once cardizem gtt was d/c'd DM II Systolic CHF with EF of 25% -Lasix, spironolactone, losartan, CAD with pacemaker Hypothyroid HTN CJ RAMOS DO Aug 09, 2018 06:35
[2018-08-09] MEDS: LEVOTHYROXINE 125 MCG (LEVOTHROID) TABLET PO SCH (06:51)
[2018-08-09] MEDS: FUROSEMIDE 40 MG (LASIX) TAB PO SCH ×2 (06:51→16:01)
[2018-08-09] MEDS: CLOPIDOGREL 75 MG (PLAVIX) TABLET PO SCH (06:52)
--- NOTE | 2018-08-09 07:34 | Diagnostic Imaging Report ---
INDICATION: Chest pain. COMPARISON: 08/08/2018 FINDINGS: Single frontal radiographic view of the chest was obtained and shows persistent severe cardiomegaly. Pulmonary vasculature, however, is within normal limits. Left-sided AICD is noted. Lungs are mildly hyperinflated, but otherwise clear. There is no large effusion or pneumothorax. Bony structures show no gross acute abnormalities. IMPRESSION: 1. Significant cardiomegaly, but no evidence of overt failure. 2. Probable background of COPD. Dictated by: Dictated on workstation # [id number]
[2018-08-09] MEDS: SPIRONOLACTONE 25 MG (ALDACTONE) TAB PO SCH (08:03)
[2018-08-09] MEDS: LOSARTAN 25 MG (COZAAR) TAB PO SCH (08:03)
[2018-08-09] MEDS: ASPIRIN E.C. 81 MG (ECOTRIN) TAB PO SCH (08:03)
--- NOTE | 2018-08-09 08:45 | Progress Note-Cardiology ---
Cardiology SOAP Progress Note Subjective: Sitting up in bed. States she feels better this morning. No c/o CP, palpitations, syncope, near syncope or LE swelling. Wants to go home today. Objective: I&O/Vital Signs 08/09/18 08/09/18 08/09/18 08/09/18 01:00 01:00 02:00 03:00 Pulse 80 80 80 80 Resp 28 17 18 B/P (MAP) 111/57 (75) 110/52 (71) 116/54 (74) Pulse Ox 95 93 92 O2 Delivery Room Air Room Air Room Air 08/09/18 08/09/18 08/09/18 08/09/18 04:00 04:27 04:27 05:00 Temp 97.2 Pulse 80 80 80 Resp 18 11 15 B/P (MAP) 93/47 (62) 107/53 (71) 92/45 (61) Pulse Ox 98 96 97 O2 Delivery Room Air Room Air Room Air Room Air 08/09/18 08/09/18 08/09/18 08/09/18 06:00 07:00 07:00 07:00 Pulse 80 84 84 Resp 14 B/P (MAP) 98/52 (67) 113/56 (75) Pulse Ox 95 98 O2 Delivery Room Air Room Air Room Air 08/09/18 08/09/18 08/09/18 08:00 09:00 12:00 Pulse 79 87 84 Resp 15 23 23 B/P (MAP) 104/52 (69) 121/69 (86) 107/63 (78) Pulse Ox 98 100 O2 Delivery Room Air Room Air Room Air 08/09/18 00:00 Intake Total 605 ml Output Total 650 ml Balance -45 ml Weight (Pounds): 115 Weight (Ounces): 3.0 Weight (Calculated Kilograms): 52.169559 Constitutional: AAO x 3, well-developed, other (Thin-appearing) Respiratory: No accessory muscle use; lungs clear to auscultation Cardiovascular: irregularly irregular, S1 and S2, systolic murmur (2/6 RK at card base) Gastrointestional: No tender; soft; No guarding, No rebound; audible bowel sounds Extremities: No clubbing, No cyanosis, No significant edema Neurologic/Psychiatric: oriented x 3, grossly intact, power is 5/5 both on sides Skin: No rash on exposed areas, No ulcerations on exposed areas Results/Procedures: Labs Laboratory Tests 08/08/18 15:07: Troponin I 1.108*H 08/09/18 04:05: White Blood Count 7.9, Red Blood Count 3.70L, Hemoglobin 11.0L, Hematocrit 34L, Mean Corpuscular Volume 93, Mean Corpuscular Hemoglobin 30, Mean Corpuscular Hemoglobin Concent 32, Red Cell Distribution Width 15.0H, Platelet Count 125L, Mean Platelet Volume 10.7H, Neutrophils (%) (Auto) 63, Lymphocytes (%) (Auto) 20 , Monocytes (%) (Auto) 12, Eosinophils (%) (Auto) 4, Basophils (%) (Auto) 1, Neutrophils # (Auto) 5.0, Lymphocytes # (Auto) 1.6, Monocytes # (Auto) 0.9, Eosinophils # (Auto) 0.4H, Basophils # (Auto) 0.0, Sodium Level 139, Potassium Level 3.8, Chloride Level 103, Carbon Dioxide Level 29, Anion Gap 7, Blood Urea Nitrogen 27H, Creatinine 1.17, Estimat Glomerular Filtration Rate 44, BUN/ Creatinine Ratio 23, Glucose Level 96, Calcium Level 9.4, Phosphorus Level 3.7, Magnesium Level 2.1, Triglycerides Level 77, Cholesterol Level 160, LDL Cholesterol Direct 88, VLDL Cholesterol 15, HDL Cholesterol 51 Procedures NAME: CARLI JESUS MED REC#: [id number] PT STATUS: ADM IN : 1935 PHYSICIAN: CJ RAMOS DO ADMIT DATE: 08/08/18/ICU Draft Date of Exam:08/09/18 CHEST 1 VIEW, AP/PA ONLY INDICATION: Chest pain. COMPARISON: 08/08/2018 FINDINGS: Single frontal radiographic view of the chest was obtained and shows persistent severe cardiomegaly. Pulmonary vasculature, however, is within normal limits. Left-sided AICD is noted. Lungs are mildly hyperinflated, but otherwise clear. There is no large effusion or pneumothorax. Bony structures show no gross acute abnormalities. IMPRESSION: 1. Significant cardiomegaly, but no evidence of overt failure. 2. Probable background of COPD. Dictated on workstation # [id number] Dict: 08/09/18 0729 Trans: 08/09/18 0734 KB [id number] Interpreted by: CORI ENRIQUE MD Electronically signed by: A/P: Assessment: Type-2 HI due to coronary demand and supply mismatch due to reasons noted below Permanent A Fib with this presentation with a rapid ventricular response CAD for which she has been told she is not a candidate for further intervention (surgical or percutaneous) per last cath of Apr, 2018 at [facility]. In November, at [facility]: 60% LMCA treated with Alp Xience 2.5 x 15 mm stent extending into prox LCX , 50% prox LAD, patent mild LAD stent, long and diffuse 90-95% stenosis of distal LAD after the stent, 50% ostial LCX, chronic mid-vessel occ of the RCA. Last cath on 04/22/18 at [facility]: Cor status unchanged except a newly occluded LAD that was not intervened on (treated conservatively) Chronic systolic CHF due to severe ischemic CM with LVEF reported to be 25% on echo of Feb, 2018 at [facility] [employer] in Mar, [address] Scott at [facility]. Previously had a single chamber pacemaker that was first placed in 2005 and revised in 2012 at [facility] S/p Atriclip at [facility] in 2017. Taken off OAC after that H/o hypothyroidism (etiology undefined) - TSH WNL H/o hypertension H/o hyperlipidemia H/o GERD H/o primary biliary cirrhosis Plan: * IV diltiazem dc'd d/t hypotension. We solorzano start oral diltiazem today for rate control * Increase activity this morning * Answered her questions in detail Physician Assessment Physician Assessment No cp or palp or syncope today. Chronic shortness of breath Lungs: fair to good air entry Cor: irreg Ext: no c/c/e A&R * As documented in our note above that I updated (italics) and as noted below * Change iv dilt to oral dilt * Increase ambulation to eval vent rate control * Complex management to a complex cardiac and other medical history * I answered her CV-related questions in detail * Monitor labs Clinical Quality Measures AMI/AHF: ASA po Prior to arrival: Yes JERILYN WILL SERVICE COORDINATOR [facility] Aug 09, 2018 08:45 DONNA GORE MD [facility] Aug 09, 2018 12:53
[2018-08-09] MEDS ORDERED: CLOPIDOGREL 75 MG (PLAVIX) TABLET PO SCH (09:00)
[2018-08-09] MEDS ORDERED: ASPIRIN 81 MG CHEW (CHILDREN'S ASA) PO SCH (09:00)
[2018-08-09] MEDS ORDERED: DILTIAZEM 180 MG (CARDIZEM CD) CAP PO NR (09:26)
[2018-08-09] MEDS: URSODIOL PO SCH ×3 (11:30→18:20)
--- NOTE | 2018-08-09 14:16 | NUR ---
Pastoral care visit, provided support and prayer.
[2018-08-09] MEDS: MULTIVIT W/MINERALS TAB (THERAGRAN M) PO SCH (16:01)
--- NOTE | 2018-08-09 16:03 | History & Physical-Hospitalist ---
History of Present Illness HPI/Chief Complaint The patient is a delightful 83-year-old white female who has had atrial fibrillation for at least 10 years. She reported that yesterday morning she awakened at about 05 30 with the sensation of rapid palpitations. This is happened before but has always spontaneously resolved. Yesterday that was not the case. She got up to attempt to walk and found that she felt even more short of breath and then noted some chest pain. At that point she elected that she needed to come to the emergency room. She has a long history of heart disease with multiple interventions. She is on her third pacemaker. Her previous one was removed and replaced as her ejection fraction was low and the new one was a pacer defibrillator. She also has biliary cirrhosis. This is being managed at [facility]. She reports that she was told there that she will likely of natural causes before he experiences liver failure. Source: patient Exam Limitations: no limitations Date Seen 08/09/18 Time Seen by a Provider: 15:58 Attending Physician Hazel Verdugo MD PCP Sylvain Dominguez MD Referring Physician Date of Admission Aug 08, 2018 at 13:06 Home Medications & Allergies Home Medications Reviewed patient Home Medication Reconciliation performed by pharmacy medication reconciliations technician helper instrument and/or nursing. Patients Allergies have been reviewed. Allergies Allergies Coded Allergies prednisone (Verified Allergy, Unknown, RACING HEART, 08/08/18) amoxicillin (Verified Adverse Reaction, Unknown, NAUSEA, 08/08/18) Uncoded Allergies CONTRST DYE ( Adverse Reaction, Unknown, KIDNEYS FAILED, 08/08/18) Past Hkzgrek-Bcbuat-Chmyyy Hx Patient Social History Alcohol Use: Denies Use Recreational Drug Use: No Smoking Status: Never a Smoker Physical Abuse Screen: No Sexual Abuse: No Recent Foreign Travel: No Contact w/other who traveled: No Recent Hopitalizations: No Recent Infectious Disease Expo: No Immunizations Up To Date Date of Pneumonia Vaccine: Feb 20, 2018 Date of Influenza Vaccine: Feb 20, 2018 Seasonal Allergies Seasonal Allergies: No Past Medical History Surgeries: Cardiac (Cardiac angiography), Ear Surgery, Hysterectomy, Orthopedic Currently Using CPAP: No Currently Using BIPAP: No Cardiac: Atrial Fibrillation, Coronary Artery Disease, Heart Attack, Hypertension : No Gastrointestinal: Cirrhosis (Of unknown etiology), Gall Bladder Disease Musculoskeletal: Arthritis, Fractures HEENT: Glaucoma History of Blood Disorders: No Family History Cardiovascular disease MOTHER Hypercholesterolemia DAUGHTER Myocardial infarction 19 FATHER Review of Systems Constitutional: see HPI EENTM: no symptoms reported Respiratory: short of breath Cardiovascular: chest pain, palpitations Gastrointestinal: no symptoms reported Genitourinary: no symptoms reported Physical Exam Physical Exam Vital Signs Vital Signs - First Documented 08/08/18 09:04 Temp 98.0 Pulse 134 Resp 16 B/P (MAP) 153/94 (113) Pulse Ox 100 O2 Delivery Room Air Capillary Refill : Less Than 3 Seconds Height, Weight, BMI Height: 5'1.00" Weight: 115lbs. 3.0oz. 52.688257jw; 21.8 BMI Method:Stated General Appearance: No Apparent Distress, WD/WN Eyes: Bilateral Eye Normal Inspection HEENT: Normal ENT Inspection Neck: Full Range of Motion Respiratory: Chest Non Tender, Lungs Clear, Normal Breath Sounds, No Accessory Muscle Use, No Respiratory Distress Cardiovascular: Regular Rate, Rhythm Results Results/Procedures Labs Laboratory Tests 08/08/18 09:10 08/09/18 04:05 Patient resulted labs reviewed. Clinical Quality Measures AMI/AHF: ASA po Prior to arrival: Yes DVT/VTE Risk/Contraindication: Risk Factor Score Per Nursin RFS Level Per Nursing on Admit: 2=Moderate ANNA ROSA MD Aug 09, 2018 16:03
--- NOTE | 2018-08-09 16:48 | NUR ---
Pt is concerned about the fact that she see's a engineer operations and maintenance at but [facility] transfers pt to [facility]. This RN talked with EMIGDIO Conrad, who stated that she could follow up with Dr. Jha post dismissal and then continue to see her normal Automatic Nailing Machine Feeder. Then Dr. Jha would be available should she ever need to come back to [facility].
[2018-08-09] MEDS ORDERED: DOCUSATE SODIUM 100 MG (COLACE) CAP PO SCH (21:00)
[2018-08-09] MEDS: TIMOLOL MALEATE 0.5% 5 ML (TIMOPTIC) BTL OU SCH (21:30)
[2018-08-09] MEDS: PANTOPRAZOLE 20 MG TABLET (PROTONIX) PO SCH (21:32)
[2018-08-09] MEDS: ATORVASTATIN 40 MG (LIPITOR) TABLET PO SCH (21:32)
[2018-08-10 00:06] VITALS: BP 106/64
[2018-08-10 04:00] VITALS: BP 113/78
[2018-08-10 04:29] LABS: BASOPHILS # (AUTO) 0.1 10^3/uL (0.0-0.1); BASOPHILS % (AUTO) 1 % (0-10); EOSINOPHILS # (AUTO) 0.4 10^3/uL (0.0-0.3); EOSINOPHILS % (AUTO) 6 % (0-10); HEMATOCRIT 34 % (35-52); HEMOGLOBIN 11.2 G/DL (11.5-16.0); LYMPHOCYTES # (AUTO) 1.5 X 10^3 (1.0-4.0); LYMPHOCYTES % (AUTO) 22 % (12-44); MEAN CORPUSCULAR HEMOGLOBIN 30 PG (25-34); MEAN CORPUSCULAR HGB CONC 33 G/DL (32-36); MEAN CORPUSCULAR VOLUME 93 FL (80-99); MEAN PLATELET VOLUME 10.7 FL (7.4-10.4); MONOCYTES # (AUTO) 1.1 X 10^3 (0.0-1.0); MONOCYTES % (AUTO) 16 % (0-12); NEUTROPHILS # (AUTO) 3.8 X 10^3 (1.8-7.8); NEUTROPHILS % (AUTO) 56 % (42-75); PLATELET COUNT 135 10^3/uL (130-400); RED CELL DISTRIBUTION WIDTH 15.1 % (10.0-14.5); WHITE BLOOD COUNT 6.8 10^3/uL (4.3-11.0)
[2018-08-10 04:47] LABS: CALCIUM 9.4 MG/DL (8.5-10.1); CREATININE SERUM 1.23 MG/DL (0.60-1.30); MAGNESIUM 2.3 MG/DL (1.8-2.4); POTASSIUM 3.8 MMOL/L (3.6-5.0)
--- NOTE | 2018-08-10 05:01 | Pulmonary Progress Note ---
Subjective Time Seen by a Provider: 05:04 Subjective/Events-last exam No complications noted. No CP. Currently paced Sepsis Event Evaluation Height, Weight, BMI Height: 5'1.00" Weight: 115lbs. 3.0oz. 52.372415wh; 21.8 BMI Method:Stated Exam Exam Vital Signs Date Time Temp Pulse Resp B/P (MAP) Pulse Ox O2 Delivery O2 Flow Rate FiO2 08/10/18 01:00 80 08/10/18 00:06 97.3 81 16 106/64 (78) 99 Room Air 08/09/18 21:00 Room Air 08/09/18 20:00 82 19 128/70 (89) Room Air 08/09/18 20:00 97.5 80 16 109/65 (80) 96 Room Air 08/09/18 19:00 80 08/09/18 16:00 80 24 128/70 (89) Room Air 08/09/18 13:00 81 08/09/18 12:00 84 23 107/63 (78) Room Air 08/09/18 09:00 87 23 121/69 (86) 100 Room Air 08/09/18 08:00 79 15 104/52 (69) 98 Room Air 08/09/18 07:00 84 08/09/18 07:00 84 14 113/56 (75) 98 Room Air 08/09/18 07:00 Room Air 08/09/18 06:00 80 98/52 (67) 95 Room Air 08/09/18 05:00 80 15 92/45 (61) 97 Room Air I & O 08/10/18 07:00 Intake Total 975 ml Balance 975 ml Height & Weight Height: 5'1.00" Weight: 115lbs. 3.0oz. 52.872276yv; 21.8 BMI Method:Stated General Appearance: No Apparent Distress, WD/WN HEENT: Normal ENT Inspection Neck: Full Range of Motion Respiratory: Chest Non Tender, Lungs Clear, Normal Breath Sounds, No Accessory Muscle Use, No Respiratory Distress Cardiovascular: Regular Rate, Rhythm Capillary Refill: Less Than 3 Seconds Extremity: Normal Capillary Refill, Normal Inspection, No Pedal Edema Neurologic/Psychiatric: Alert, Oriented x3, No Motor/Sensory Deficits, Normal Mood/Affect, mink farmer II-XII Norm as Tested Skin: Normal Color, Warm/Dry Results Lab Laboratory Tests 08/08/18 09:10 08/09/18 04:05 08/10/18 04:00 Assessment/Plan Assessment/Plan CP with elevated troponin -Cardiology is consulted -ASA, and plavix -Transfer to [facility] with tele. NSTEMI Afib RVR - now controlled DM II Systolic CHF with EF of 25% -Lasix, spironolactone, losartan, CAD with pacemaker Hypothyroid HTN Transfer to 4th floor CJ RAMOS DO Aug 10, 2018 05:01
[2018-08-10] MEDS: CLOPIDOGREL 75 MG (PLAVIX) TABLET PO SCH (05:53)
[2018-08-10] MEDS: URSODIOL PO SCH (05:53)
[2018-08-10] MEDS: LEVOTHYROXINE 125 MCG (LEVOTHROID) TABLET PO SCH (05:53)
[2018-08-10] MEDS: FUROSEMIDE 40 MG (LASIX) TAB PO SCH (05:53)
[2018-08-10 06:30] VITALS: BP 100/55
--- NOTE | 2018-08-10 06:49 | NUR ---
PT TRANSFERRED TO ROOM 404 WITH HER BELONGINGS. PT ORIENTED TO ROOM. REPORT RECEIVED FROM FIRE MARSHAL JOE. VITAL SIGNS TAKEN. THIS RN AGREES WITH FIRE MARSHAL JOE'S ASSESSMENT. PT HAS NO COMPLAINTS OF CHEST PAIN AT THIS TIME. WILL CONTINUE TO MONITOR PT.
[2018-08-10 08:00] VITALS: BP 105/51
[2018-08-10] MEDS: LOSARTAN 25 MG (COZAAR) TAB PO SCH (08:23)
[2018-08-10] MEDS: SPIRONOLACTONE 25 MG (ALDACTONE) TAB PO SCH (08:23)
[2018-08-10] MEDS: ASPIRIN E.C. 81 MG (ECOTRIN) TAB PO SCH (08:23)
--- NOTE | 2018-08-10 08:26 | NUR ---
LATE NOTE 07/09/18: ID PATIENTS OWN URSODIOL, PLACED IN RX VIAL FROM PHARMACY AND GIVEN TO NURSE.
--- NOTE | 2018-08-10 08:48 | Diagnostic Imaging Report ---
INDICATION: Atrial fibrillation, chest pain COMPARISON: 08/09 FINDINGS: Mitral clipping noted. ICD device and pacemaker apparatus unremarkable. The heart is enlarged unchanged. Air trapping and COPD chronic. No max edema, pneumonia, effusion or pneumothorax. IMPRESSION: Stable chronic findings. Dictated by: Dictated on workstation # [id number]
[2018-08-10] MEDS ORDERED: DILTIAZEM 180 MG (CARDIZEM CD) CAP PO SCH (09:00)
--- NOTE | 2018-08-10 09:47 | Progress Note-Cardiology ---
Cardiology SOAP Progress Note Subjective: Sitting up in a chair at the bedside. Denies any c/o CP, palpitations, syncope , near syncope or LE swelling. Wants to go home today. Objective: I&O/Vital Signs 08/10/18 08/10/18 08/10/18 08/10/18 04:00 06:30 07:00 08:00 Temp 97.1 98.2 98.4 Pulse 80 82 84 81 Resp 16 18 20 B/P (MAP) 113/78 (90) 100/55 (70) 105/51 (69) Pulse Ox 98 96 98 O2 Delivery Room Air Room Air Room Air 08/10/18 09:00 O2 Delivery Room Air 08/10/18 00:00 Intake Total 975 ml Balance 975 ml Weight (Pounds): 115 Weight (Ounces): 3.0 Weight (Calculated Kilograms): 52.887672 Constitutional: AAO x 3, well-developed, other (Thin-appearing) Respiratory: No accessory muscle use; lungs clear to auscultation Cardiovascular: irregularly irregular, S1 and S2, systolic murmur (2/6 RK at card base) Gastrointestional: No tender; soft; No guarding, No rebound; audible bowel sounds Extremities: No clubbing, No cyanosis, No significant edema Neurologic/Psychiatric: oriented x 3, grossly intact, power is 5/5 both on sides Skin: No rash on exposed areas, No ulcerations on exposed areas Results/Procedures: Labs Laboratory Tests 08/10/18 04:00: White Blood Count 6.8, Red Blood Count 3.71L, Hemoglobin 11.2L, Hematocrit 34L, Mean Corpuscular Volume 93, Mean Corpuscular Hemoglobin 30, Mean Corpuscular Hemoglobin Concent 33, Red Cell Distribution Width 15.1H, Platelet Count 135, Mean Platelet Volume 10.7H, Neutrophils (%) (Auto) 56, Lymphocytes (%) (Auto) 22 , Monocytes (%) (Auto) 16H, Eosinophils (%) (Auto) 6, Basophils (%) (Auto) 1, Neutrophils # (Auto) 3.8, Lymphocytes # (Auto) 1.5, Monocytes # (Auto) 1.1H, Eosinophils # (Auto) 0.4H, Basophils # (Auto) 0.1, Sodium Level 138, Potassium Level 3.8, Chloride Level 100, Carbon Dioxide Level 27, Anion Gap 11, Blood Urea Nitrogen 29H, Creatinine 1.23, Estimat Glomerular Filtration Rate 42, BUN/ Creatinine Ratio 24, Glucose Level 100, Calcium Level 9.4, Phosphorus Level 4.0 , Magnesium Level 2.3 Microbiology 08/08/18 MRSA Screen - Final, Complete MRSA not isolated A/P: Assessment: Type-2 TN due to coronary demand and supply mismatch due to reasons noted below Permanent A Fib with this presentation with a rapid ventricular response - rate improved with addition of oral Diltiazem CAD for which she has been told she is not a candidate for further intervention (surgical or percutaneous) per last cath of Apr, 2018 at [facility]. In November, at [facility]: 60% LMCA treated with Alp Xience 2.5 x 15 mm stent extending into prox LCX , 50% prox LAD, patent mild LAD stent, long and diffuse 90-95% stenosis of distal LAD after the stent, 50% ostial LCX, chronic mid-vessel occ of the RCA. Last cath on 04/22/18 at [facility]: Cor status unchanged except a newly occluded LAD that was not intervened on (treated conservatively) Chronic systolic CHF due to severe ischemic CM with LVEF reported to be 25% on echo of Feb, 2018 at [facility] RESPIRATORY SCIENTIST-D in Mar, [address] Scott at [facility]. Previously had a single chamber pacemaker that was first placed in 2005 and revised in 2012 at [facility] S/p Atriclip at [facility] in 2017. Taken off OAC after that H/o hypothyroidism (etiology undefined) - TSH WNL H/o hypertension H/o hyperlipidemia H/o GERD H/o primary biliary cirrhosis Plan: * Continue current medication regimen * Advise out pt f/u with her online communications manager at * We will see her in a week at our office per her request d/t medication changes * Answered her questions in detail Physician Assessment Physician Assessment No cp or palp or syncope Exertional shortness of breath at its usual baseline Cor: irreg Lungs: clear Ext: no c/c/e A&R * As documented in our note above that I updated (italics) and as noted below * I spoke with her and her fam in detail and answered CV-related questions * We have added long-acting dilt to her regimen * Previous regimen is being continued * Outpt f/u is advised Clinical Quality Measures AMI/AHF: ASA po Prior to arrival: Yes JERILYN WILL [employer] OPERATIONS COORDINATOR Aug 10, 2018 09:47 DONNA GORE MD [facility] Aug 10, 2018 13:09
--- NOTE | 2018-08-10 10:41 | Progress Note-Hospitalist ---
Progress Note Progress Notes/Assess & Plan Date Seen 08/10/18 Time Seen by Provider: 10:39 Assessment & Plan The patient is doing well. She is sitting in the bedside chair and is alert and oriented. She is expecting to get out of here today. There is been no evidence of any more tachy arrhythmia. She has no complaints of chest pain or shortness of breath. Physical exam: Color is good. Lungs are clear to auscultation. CV is regular and presumably paced. Extremities show no pedal edema. Impression: Congestive cardiomyopathy. 2.atrial fibrillation with rapid ventricular response now controlled. Plan: Discharge. See discharge sequence for medications and activities. ANNA ROSA MD Aug 10, 2018 10:41
[2018-08-10 12:00] VITALS: BP 109/54
--- NOTE | 2018-08-10 12:50 | Discharge Inst-Simple/Standard ---
Discharge Inst-Standard Patient Instructions/Follow Up Plan of Care/Instructions/FU: See below Activity as Tolerated: Yes Goal: Medications as on the discharge sequence. Resume diet and activities as before. Keep appointment with cardiology. Discharge Diet: No Restrictions ANNA ROSA MD Aug 10, 2018 12:50
[2018-08-10 13:15] VITALS: BP 109/54
--- NOTE | 2018-08-10 13:15 | NUR ---
DISCHARGE INSTRUCTIONS GIVEN TO PATIENT WITH TIME ALLOWED FOR QUESTIONS. PATIENT STATES SHE IS NOT IN ANY PAIN. IV REMOVED WITH CATHETER INTACT. PATIENT LEFT VIA WHEELCHAIR ACCOMPANIED BY STAFF. LEFT FACILITY IN PRIVATE VEHICLE.
== END 2018-08-10 13:15 | disposition home or self-care (01) | DRG 281 ==
LOC: EDUNIT# 09:04 → ER 09:05 → ICU 13:06 → 4TH 08-10 07:02
PROVIDERS: ADMIT Family Medicine; ATTEND Family Medicine
DX: I48.0 Paroxysmal atrial fibrillation (principal); I21.A1 Myocardial infarction type 2; I11.0 Hypertensive heart disease with heart failure; I50.22 Chronic systolic (congestive) heart failure; I25.10 Atherosclerotic heart disease of native coronary artery without angina pectoris; I25.5 Ischemic cardiomyopathy; J44.9 Chronic obstructive pulmonary disease, unspecified; E03.9 Hypothyroidism, unspecified; E78.5 Hyperlipidemia, unspecified; K21.9 Gastro-esophageal reflux disease without esophagitis; K74.3 Primary biliary cirrhosis; I25.2 Old myocardial infarction; Z95.810 Presence of automatic (implantable) cardiac defibrillator
CPT/HCPCS: 36415; 71045; 80048; 80053; 80061; 83735; 83874; 83880; 84100; 84439; 84443; 84484; 85025; 85610; 85730; 87081; 93005; 93041

== ENCOUNTER → 2019-08-03 | Outpatient (CLI) | payer MEDICARE ==
[~2019-08-03] MED LIST: ACET-78 PO; ACET325T49 PO; ASPI-999 PO; ATOR40TA70 PO; CALC600T12 PO; CLOP75TA28 PO; DILT-28 PO; FERR-84 PO; FURO40TA4 PO; KRIL1CAP29 PO; LEVO125T6 PO; LOSA25TA41 PO; MIDO2.5T PO; MTP25TSR PO; MULT-593 PO; NITR0.4T42 SL; OCUVITE SOFTGE1 EACH PO; OMEP-280 PO; OMG1KC PO; POLY17PO6 PO; SPIR25TA5 PO; TIMO5DRO5 OU; URSO300C9 PO
--- NOTE | 2019-08-03 08:30 | Diagnostic Imaging Report ---
INDICATION: Primary biliary cholangitis. TECHNIQUE: Multiple real-time grayscale images were obtained over the abdomen in various projections. FINDINGS: The liver is normal in size without focal lesions. There is hepatopedal flow in the main portal vein. There is no biliary duct dilatation. The common bile duct measures 4 mm. There is cholelithiasis. There is no gallbladder wall thickening or pericholecystic fluid. The visualized portions of the pancreas are unremarkable. The spleen is normal in size. Aorta is not well seen due to bowel gas. IVC is patent. Both kidneys are normal in appearance. There is no ascites. IMPRESSION: Cholelithiasis, otherwise unremarkable abdominal ultrasound. Dictated by: Dictated on workstation # [id number]
== END ==
LOC: RAD 06:43
PROVIDERS: ATTEND Internal Medicine
DX: K83.09 Other cholangitis (principal); K80.20 Calculus of gallbladder without cholecystitis without obstruction
CPT/HCPCS: 76700

== ENCOUNTER → 2020-03-05 | Outpatient (CLI) | payer MEDICARE ==
[~2020-03-05] MED LIST changes: -CALC600T12 PO; +CLC600T PO; -OMEP-280 PO; +OMEP20CA18 PO
--- NOTE | 2020-03-05 10:56 | Diagnostic Imaging Report ---
INDICATION: Primary biliary cholangitis. PROCEDURE: Ultrasound abdomen complete. TECHNIQUE: Multiple Real-time grayscale images were obtained of the abdomen in various projections. FINDINGS: The liver is normal in size at 14.1 cm. The liver parenchyma is diffusely heterogeneous but no discrete liver mass is detected. The portal vein is patent and shows normal direction of flow. The gallbladder does contain a large gallstone. No significant wall thickening or biliary ductal dilatation is seen. The pancreas is unremarkable. The spleen is normal in size at 10 cm. The aorta is nonaneurysmal. The IVC is patent. The right and left kidneys are without calculi or hydronephrosis. There is no ascites. IMPRESSION: 1. Liver parenchymal heterogeneity without evidence of discrete liver mass. 2. Cholelithiasis without evidence of acute cholecystitis. 3. No other significant abnormality is detected. Dictated by: Dictated on workstation # [id number]
== END ==
LOC: RAD 09:24
PROVIDERS: ATTEND Internal Medicine
DX: K76.89 Other specified diseases of liver (principal); K80.20 Calculus of gallbladder without cholecystitis without obstruction; K74.3 Primary biliary cirrhosis
CPT/HCPCS: 76700

== ENCOUNTER → 2020-10-08 | Outpatient (CLI) | payer MEDICARE ==
--- NOTE | 2020-10-08 13:46 | Diagnostic Imaging Report ---
INDICATION: PRIMARY BILIARY CHOLANGITIS TECHNIQUE: Multiple real-time castaneda scale sonographic images of the abdomen. CORRELATION STUDY: 03/05/2020 FINDINGS: LIVER: Heterogeneous echotexture within the visualized portions of the liver. No definitive focal lesion. Liver length at 15.7 cm. There is normal, hepatopedal direction of flow within the main portal vein. GALLBLADDER: There is rather sizable, shadowing thick walled echogenic foci present. This measures 3.2 x 1.7 x 2.6 cm likely reflects a large gallstone. No abnormal gallbladder wall thickening or pericholecystic fluid. COMMON BILE DUCT: Nondilated at 0.6 cm. PANCREAS: Limited in visualization. The visualized portions appearing unremarkable. SPLEEN: Measure approximately 10 x 4.6 x 5.1 cm, within normal limits. ABDOMINAL AORTA: Unremarkable. INFERIOR VENA CAVA: Limited in visualization. RIGHT KIDNEY: 9.7 x 4.4 x 4.3 cm. Unremarkable. LEFT KIDNEY: 8.9 x 4.6 x 5.0 cm. Unremarkable. OTHER: No significant ascites. IMPRESSION: 1. Heterogeneous echotexture liver parenchyma without definitive focal lesion. 2. Cholelithiasis. No ultrasound findings to suggest acute cholecystitis. Dictated by: Dictated on workstation # [id number]
== END ==
LOC: RAD FS 09:48
PROVIDERS: ATTEND Internal Medicine
DX: K74.3 Primary biliary cirrhosis (principal); K80.20 Calculus of gallbladder without cholecystitis without obstruction
CPT/HCPCS: 76700

== ENCOUNTER → 2021-05-28 | Outpatient (CLI) | payer MEDICARE ==
[~2021-05-28] MED LIST changes: +CALC600T91 PO; -CLC600T PO
--- NOTE | 2021-05-28 10:45 | Diagnostic Imaging Report ---
PROCEDURE: US Abdomen, limited. TECHNIQUE: Multiple Real-time grayscale images were obtained over the abdomen in various projections. INDICATION: Primary biliary cholangitis. FINDINGS: The liver is echogenic which may be secondary to hepatic steatosis. No focal lesion is seen. There is cholelithiasis with a large gallstone present, similar to the 10/08/2020 study. The gallbladder wall is not thickened. The bile ducts are not dilated. The pancreas is obscured by gas. No abnormality of the aorta, IVC, or right kidney is seen. There is no ascites. IMPRESSION: Echogenic liver which may be secondary to hepatic steatosis. There is cholelithiasis. Dictated by: Dictated on workstation # [id number]
== END ==
LOC: RAD FS 08:02
PROVIDERS: ATTEND Internal Medicine
DX: K74.3 Primary biliary cirrhosis (principal); K80.20 Calculus of gallbladder without cholecystitis without obstruction
CPT/HCPCS: 76705

== ENCOUNTER → 2021-11-28 | Outpatient (CLI) | payer MEDICARE ==
--- NOTE | 2021-11-28 09:10 | Diagnostic Imaging Report ---
PROCEDURE: US Abdomen, limited. TECHNIQUE: Multiple realtime grayscale images were obtained over the abdomen in various projections. INDICATION: Cirrhosis. FINDINGS: Liver measures 14 cm. Liver demonstrates a heterogeneous echotexture as well as a nodular contour suggestive of cirrhosis. No discrete liver mass is detected. The portal vein is patent and shows normal direction of flow. Gallbladder does contain a large stone. Stone is approximately 3 cm in size. No wall thickening or biliary ductal dilatation is seen. Pancreas is obscured. Aorta is obscured. IVC is patent. Right kidney is without calculi or hydronephrosis. There is no ascites. IMPRESSION: 1. Findings suggestive of cirrhosis. No discrete liver mass is detected. 2. Cholelithiasis without evidence of acute cholecystitis. Dictated by: Dictated on workstation # [id number]
== END ==
LOC: RAD FS 07:50
PROVIDERS: ATTEND Internal Medicine
DX: K74.69 Other cirrhosis of liver (principal); K80.20 Calculus of gallbladder without cholecystitis without obstruction
CPT/HCPCS: 76705

== ENCOUNTER → 2022-04-22 | Outpatient (CLI) | payer MEDICARE | LOC: CARDFS 14:41 | PROVIDERS: ATTEND Internal Medicine Cardiovascular Disease | DX: Z13.6 Encounter for screening for cardiovascular disorders (principal); I08.1 Rheumatic disorders of both mitral and tricuspid valves; I48.21 Permanent atrial fibrillation; E78.5 Hyperlipidemia, unspecified; I25.10 Atherosclerotic heart disease of native coronary artery without angina pectoris; Z95.0 Presence of cardiac pacemaker; I11.0 Hypertensive heart disease with heart failure; I50.22 Chronic systolic (congestive) heart failure; K74.3 Primary biliary cirrhosis; Z95.5 Presence of coronary angioplasty implant and graft | CPT/HCPCS: 93306 ==